=== PATIENT | male | born 1945 | race Caucasian/White ===

== ENCOUNTER 2018-03-11 17:12 | Inpatient (IN) | payer OTHER ==
[~2018-03-11] VITALS: Ht 195.6 cm; Wt 94.8 kg
--- NOTE | ~2018-03-11 | WRIGHTHP ---
[place], [place] PATIENT HISTORY AND PHYSICAL EXAM NAME: LG NAPIER UNIT #: [id number] ROOM: 310 DOCTOR: LANCE HEART MD BIRTHDATE: [birth year] DOS: 03/12/2018 INITIAL PSYCHIATRIC EVALUATION CHIEF COMPLAINT: "I have just been so depressed, I can't go on like this." HISTORY OF PRESENT ILLNESS: This is a 72-year-old white male who presents to [facility] with the chief complaint of increased depression with the plan to drink himself to . The patient reports that since he had open heart surgery in January 2017, he has felt increasingly depressed and despondent. He reports significant neurovegetative symptoms that include poor sleep with difficulty falling asleep, sleep continuity disturbance, cloud automation tester awakening, anergia, anhedonia, hopeless, helpless feelings, crying spells and inability to cope. He also reports significant suicidal thoughts with a plan. The patient reports his only previous medication trial was Prozac, but admits that he did not give it much of a chance. He is admitted now to rule out organic factors and attempt to stabilize on medication. PAST MEDICAL HISTORY: Remarkable for atrial fibrillation, coronary artery disease, colon cancer, hypertension, hyperlipidemia, peripheral artery disease, history of CABG x 2. The patient does not use illicit drugs. He is a former cigarette smoker and by his report drinks alcohol socially. STRENGTHS: He has good verbal skills and he is ambulatory. He has a supportive environment. MENTAL STATUS: The patient is alert and oriented. Mood is overwhelmingly depressed and he sobbed throughout the interview. He endorses multiple neurovegetative symptoms as well as positive suicidal thoughts. There is no bull, hypomania. There are no auditory or visual hallucinations. Short term, intermediate and long-term memories are intact. DIAGNOSIS: Major depression, recurrent, severe. PLAN: I have already started him on Remeron 15 mg at bedtime. I will increase the dose to 22.5 mg at bedtime. Screening examinations reveal a low vitamin D level of 26.9, so I will augment with vitamin D 50,000 International Units weekly. Vitamin B12 level is low normal at 264. I will go ahead and treat with vitamin B12 injection 1000 mcg IM monthly. We will engage in individual and lechuga milieu activity, returning home or to the least restrictive environment when psychiatrically stable. [place], [place] PATIENT HISTORY AND PHYSICAL EXAM NAME: SEE,LG Jeff UNIT #: [id number] ROOM: 310 DOCTOR: LANEC HEART MD BIRTHDATE: [birth year] LANCE HEART MD CM:HISPHYS:PATIENT HISTORY AND PHYSICAL EXAMINATION [phone] LANCE HEART MD 03/12/18 1033 interface
--- NOTE | ~2018-03-11 | DS ---
[place], [place] DISCHARGE SUMMARY NAME: LG NAPIER UNIT #: [id number] ROOM: 310 DOCTOR: LANCE HEART MD BIRTHDATE: [birth year] DOS: 03/17/2018 CHIEF COMPLAINT: "I have been so depressed, I cannot go on like this." HISTORY OF PRESENT ILLNESS: This is a 72-year-old white male who presents to [facility] emergency room with a chief complaint of increased depression with the plan to drink himself to . The patient reports that since he had open heart surgery in January 2017 he has felt increasingly depressed and despondent. He reports significant neurovegetative symptoms that include poor sleep with difficulty falling asleep, sleep continuity disturbance, speech and language clinician awakening, anergia, anhedonia, hopeless, helpless feelings, crying spells, and inability to cope. He also has significant suicide thoughts and was planning to overdose literally by drinking himself to . The patient states that his only previous medication trial was Prozac, but admittedly states he did not give it much of a chance. He is admitted now to rule out organic factors to attempt to stabilize on medication, returning to the least restrictive environment when psychiatrically stable. PAST MEDICAL HISTORY: Remarkable for atrial fibrillation, coronary artery disease, colon cancer, hypertension, hyperlipidemia, peripheral artery disease, history of CABG times 2. SOCIAL HISTORY: The patient does not use illicit drugs. He is a former cigarette smoker and by his report, he drinks socially. STRENGTHS: Include good verbal skills and he is ambulatory and he lives in a supportive environment. SUMMARY OF THE HOSPITAL COURSE: The patient was admitted to the unit where he was started on Remeron 15 mg at bedtime. Screening examination showed him to have a low vitamin D level of 26.9, which was augmented with vitamin D 50,000 international units weekly. His B12 level was low normal at 264, so he was given a vitamin B12 injection of 1000 mcg IM monthly. Gradually, the dose of the Remeron was increased from 15 mg at bedtime to 22.5 mg at bedtime, finally settling in at 30 mg at bedtime. This was augmented by Abilify 10 mg at bedtime. Abilify was utilized to be a fast acting augmenting agent to help lift him out of the depression. The patient reported a gradual trend toward improvement. Most notably his sleep normalized, so that he was sleeping soundly through the night and waking up more refreshed. Also, his appetite normalized. He began vocalizing positive plans for the future and was anxious to leave, so he can attend his grandson's graduation. He convincingly denied suicidal thoughts, homicidal thoughts or any self-injurious thoughts as well as denying any medication side effects. MENTAL STATUS AT DISCHARGE: The patient is alert and oriented. Mood does seem to be strongly trending towards euthymia. Affect is much more appropriate. There are no symptoms of bull or hypomania. There are no gross auditory or visual hallucinations. No delusions, no paranoia. Memory for the most part was fully intact. [place], [place] DISCHARGE SUMMARY NAME: LG NAPIER UNIT #: [id number] ROOM: 310 DOCTOR: LANCE HEART MD BIRTHDATE: [birth year] FINAL DIAGNOSIS ON DISCHARGE: Major depression, recurrent, severe. PLAN: His prescriptions have been e-scribed to the [facility]. He will have outpatient followup that will also include alcohol counseling. He is medically and psychiatrically stable. His biopsychosocial needs are adequately being met by the community at large and by his family. LANCE HEART MD CM:DISCHSUMMER [id number] LANCE HEART MD 03/17/18 1155 interface
--- NOTE | ~2018-03-11 | PR ---
[place], [place] PROGRESS NOTE NAME: LG NAPIER UNIT #: [id number] ROOM: 310 DOCTOR: RABIA CHING MD BIRTHDATE: [birth year] DOS: 03/13/2018 SUBJECTIVE: The patient seen and I spoke with the staff. Per staff, the patient is still depressed, anxious, continued to have passive wish, but no plan. He slept well and he is compliant with his medication. The patient was on his bed. He opened his eyes when I asked his name. He said that he still feels depressed and had suicidal ideation, but no intent or plan. He said that he wanted to get help. He took his medication and did not have any side effect. He acknowledges that he have to give some time for the medication to start working. MENTAL STATUS EXAMINATION: Pleasant, cooperative. He described his mood as "down." Affect was flat, constricted. Thought process goal directed. No flight of ideas, loosening of association. He denied auditory or visual hallucination. No delusion or paranoia noted. He still had fleeting suicidal ideation, but no intent or plan. Denied any homicidal ideation, intent or plan. Insight and judgment poor to fair. PLAN: 1. Continue current medication and care. 2. Encourage activity and groups. 3. Continue 1:1 therapy, psychoeducation, and coping skill. RABIA CHING MD CM:PNTRANS [phone] RABIA CHING MD 03/14/18 0003 interface
--- NOTE | ~2018-03-11 | PR ---
[place], [place] PROGRESS NOTE NAME: LG NAPIER UNIT #: [id number] ROOM: 310 DOCTOR: RABIA CHING MD BIRTHDATE: [birth year] DOS: 03/14/2018 PSYCHIATRIC PROGRESS NOTE SUBJECTIVE: The patient seen and spoke with the staff. Per staff, the patient slept 8 hours, but still says that he is not feeling better. He took his medication, did not have any side effect from the medication. The patient was pleasant and cooperative. He was in his bed. He said that he is feeling a little bit better, but still feels depressed and has fleeting suicidal ideation. He did not have any intent or plan. He said that he will tell the staff if he feels like to hurt himself. MENTAL STATUS EXAMINATION: Pleasant, cooperative, described his mood as "down." Affect was flat, constricted. Thought process goal directed. No flight of ideas or loosening of association. He denied auditory or visual hallucination. No delusion or paranoia noted. He still had fleeting suicidal ideation, but no intent or plan. Denied any homicidal ideation, intent or plan. PLAN: 1. Continue current medication and care. 2. Encourage activities in groups. 3. Final medication management and discharge plan by the regular team. RABIA CHING MD CM:PNTRANS [phone] RABIA CHING MD 03/14/182038 interface
--- NOTE | ~2018-03-11 | PR ---
[place], [place] PROGRESS NOTE NAME: SEELG UNIT #: [id number] ROOM: 310 DOCTOR: LANCE HEART MD BIRTHDATE: [birth year] DOS: 03/15/2018 CHIEF COMPLAINT: "I am just so depressed, I am not any better." SUMMARY OF THE VISIT: The patient was interviewed in the dining room. He first complained of not liking the denture product that the hospital is providing and states that it does not work as well as his Fixodent. He later softly told me that he was having issues with his bowels following surgery where small parts of his large and small intestine were removed. Because of that he has a lot of leakage, which causes him to have a lot of soreness. He did request that he get some type of balm. From a psychiatric standpoint, the patient continues to complain of horrible depression. He burst into tears as he talked to me stating that he is not sleeping any better. He is not feeling the least bit better. On a positive note, he is at least tolerating the medicine and is still hopeful that he will improve. MENTAL STATUS: He remains alert and oriented. He is grossly depressed, flat, blunted with crying spells. There is no hypomania, bull or psychotic symptoms. Memory is intact. PLAN: I will increase his Remeron to 30 mg at bedtime and augment with Abilify 10 mg at bedtime, continue to engage in individual and lechuga milieu activity, returning to the least restrictive environment when psychiatrically stable. LANCE HEART MD CM:PNTRANS [id number] LANCE HEART MD 03/15/18 0924 interface
--- NOTE | ~2018-03-11 | PR ---
[place], [place] PROGRESS NOTE NAME: LG NAPIER UNIT #: [id number] ROOM: 310 DOCTOR: NIRU BOO DO BIRTHDATE: [birth year] DOS: 03/16/2018 CHIEF COMPLAINT: "I am feeling better today." SUMMARY OF VISIT: The patient is a 72-year-old male who was interviewed today during group. At that point, the patient appeared to be readily engaging in therapy. He quickly engaged in conversation. He reported increase in appetite. He reports feeling better today; however, he did become tearful when he became anxious about missing a family member's graduation tomorrow. We reassured the patient that the plan for disposition would be for tomorrow. The patient voiced understanding. The patient had no other concerns at this time. He did say he was able to sleep well, but was interrupted this morning when his labs were drawn. We apologized that the labs were drawn early, but reassured him that it was necessary for his treatment. MENTAL STATUS EXAMINATION: The patient is alert and oriented x 3. His mood is more euthymic today. Affect is tearful with a sudden onset of tearfulness when discussing his family. No signs of hypomania, bull or psychotic symptoms. No signs of auditory or visual hallucinations. The patient did not voice any thoughts of self-harm or harm to others. Short term memory is intact. PLAN: 1. The patient likely to be discharged tomorrow, 03/17/2018. 2. No psychiatric medication changes at this time as the patient is currently tolerating psychotropic regimen well. 3. Morning labs included PT and INR. PT remains high at 21.1 and INR is trending towards a more therapeutic range at 1.9, Internal Medicine hospitalist team is managing the patient's medical conditions at this point. 4. We will continue to engage the patient in individual and lechuga milieu activity, returning to the least restrictive environment when psychiatrically stable. Niru Boo DO [place], [place] PROGRESS NOTE NAME: LG NAPIER UNIT #: [id number] ROOM: 310 DOCTOR: NIRU BOO DO BIRTHDATE: [birth year] LANCE HEART MD CM:MARTA [id number] NIRU BOO DO 03/16/18 1148 interface
[2018-03-11] MEDS ORDERED: ASPIRIN81 M1 PO (18:25)
[2018-03-11] MEDS ORDERED: LOPRESSOR25 MG PO (18:26)
[2018-03-11] MEDS ORDERED: LIPITOR20 MG PO (18:26)
[2018-03-11] MEDS ORDERED: COUMADIN4 M2 PO (18:27)
[2018-03-11] MEDS ORDERED: KLOR-CON M2020 ME1 PO (18:28)
[2018-03-11] MEDS ORDERED: ZESTRIL5 MG PO (18:29)
[2018-03-11] MEDS ORDERED: PERCOCET 7.5-31 EACH PO (18:32)
[2018-03-11 22:07] VITALS: BP 122/78; BP 128/78
[2018-03-12] MEDS ORDERED: Coumadin2 MG PO (00:13)
[2018-03-12] MEDS ORDERED: COUMADIN4 M2 PO (00:14)
[2018-03-12 06:56] LABS: BASO # 0.1 10*3/uL (0.0-0.1); BASO % 0.6 % (0.0-1.0); EOS # 0.3 10*3/uL (0.0-0.4); EOS % 3.9 % (1.0-4.0); HEMATOCRIT 45.2 % (42.0-52.0); HEMOGLOBIN 14.7 g/dl (14.0-18.0); LYMPH # 1.8 10*3/uL (1.3-4.4); LYMPH % 21.6 % (27.0-41.0); MEAN CELL VOLUME 92.2 fl (80.0-94.0); MEAN CORPUSCULAR HGB CONC 32.5 g/dl (33.0-37.0); MEAN PLATELET VOLUME 10.7 fl (9.6-12.3); MONO # 0.8 10*3/uL (0.1-1.0); MONO % 9.6 % (3.0-9.0); NEUT # 5.3 10*3/uL (2.3-7.9); NEUT % 63.9 % (47.0-73.0); PLATELET COUNT AUTOMATED 189 10*3/uL (130-400); RED CELL DISTRI WIDTH 13.8 % (0-14.5); WHITE BLOOD COUNT 8.3 10*3/uL (4.8-10.8)
[2018-03-12 07:22] LABS: INTERNATIONAL NORM RATIO 1.8 (2.0-3.5)
[2018-03-12 07:30] LABS: ALBUMIN 3.8 gm/dl (3.1-4.5); BUN 14 mg/dl (7-24); CHLORIDE 107 mmol/L (98-107); CHOLESTEROL 126 mg/dL (<200); CREATININE 1.03 mg/dL (0.70-1.30); POTASSIUM 5.2 mmol/L (3.5-5.1); SGOT/AST 23 IU/L (3-35); SODIUM 140 mmol/L (136-145); TRIGLYCERIDES 115 mg/dl (<150); VLDL CHOLESTEROL 23 mg/dL (6-40)
[2018-03-12 07:40] LABS: ALKALINE PHOSPHATASE 90 U/L (45-117); HDL CHOLESTEROL 41 mg/dl (40-60); LDL CHOLESTEROL 62 mg/dL (9-159); SGPT/ALT 27 U/L (12-78); TOTAL PROTEIN 7.3 gm/dL (6.4-8.2)
[2018-03-12 08:19] LABS: VITAMIN D, 25-HYDROXY 26.9 ng/mL (30-100)
[2018-03-12 08:20] VITALS: BP 114/58
[2018-03-12 17:35] LABS: BILIRUBIN NEGATIVE (NEGATIVE); BLOOD NEGATIVE (NEGATIVE); CLARITY CLEAR (CLEAR); COLOR YELLOW (YELLOW); GLUCOSE NEGATIVE (NEGATIVE); KETONE TRACE (NEGATIVE); LEUKO ESTERASE 1+ (NEGATIVE); NITRITE NEGATIVE (NEGATIVE); SPECIFIC GRAVITY 1.025 (1.005-1.030); UROBILINOGEN 0.2 E.U./dl (0.2-1.0)
[2018-03-12 17:47] LABS: BACTERIA TRACE; MUCOUS TRACE; WBC 31-40 wbc/hpf (0-5)
[2018-03-12 20:21] VITALS: BP 110/58
[2018-03-13 07:06] LABS: INTERNATIONAL NORM RATIO 1.5 (2.0-3.5)
[2018-03-13 07:57] VITALS: BP 115/65
[2018-03-13 20:00] VITALS: BP 122/62
[2018-03-14 08:42] VITALS: BP 119/63
[2018-03-14 09:34] LABS: INTERNATIONAL NORM RATIO 1.5 (2.0-3.5)
[2018-03-14 20:00] VITALS: BP 106/63
[2018-03-15 07:31] VITALS: BP 117/80
[2018-03-15 08:10] LABS: INTERNATIONAL NORM RATIO 1.7 (2.0-3.5)
[2018-03-15 20:00] VITALS: BP 127/54
[2018-03-16 07:06] LABS: INTERNATIONAL NORM RATIO 1.9 (2.0-3.5)
[2018-03-16 08:50] VITALS: BP 115/58
[2018-03-16 19:10] VITALS: BP 112/85
[2018-03-17 06:51] LABS: INTERNATIONAL NORM RATIO 2.1 (2.0-3.5)
[2018-03-17 07:45] VITALS: BP 128/80
[2018-03-17] MEDS ORDERED: COUMADIN4 M2 PO (08:46)
[2018-03-17] MEDS ORDERED: Vitamin D PO (08:46)
[2018-03-17] MEDS ORDERED: ARIPIPRAZOLE10 MG PO (10:54)
[2018-03-17] MEDS ORDERED: MIRTAZAPINE30 M2 PO (10:54)
[2018-03-18] MEDS ORDERED: ENSURE LIQUID237 ML PO (10:00)
== END 2018-03-17 13:10 | disposition home or self-care (01) | DRG 885 ==
LOC: 3N 17:12
PROVIDERS: Internal Medicine; Internal Medicine Hospice and Palliative Medicine; Psychiatry & Neurology Psychiatry
DX: F33.2 Major depressive disorder, recurrent severe without psychotic features (principal); D68.59 Other primary thrombophilia; I48.91 Unspecified atrial fibrillation; I25.810 Atherosclerosis of coronary artery bypass graft(s) without angina pectoris; I73.9 Peripheral vascular disease, unspecified; E78.00 Pure hypercholesterolemia, unspecified; R63.4 Abnormal weight loss; I10 Essential (primary) hypertension; E78.5 Hyperlipidemia, unspecified; Z85.038 Personal history of other malignant neoplasm of large intestine; Z95.1 Presence of aortocoronary bypass graft; Z87.891 Personal history of nicotine dependence; Z90.49 Acquired absence of other specified parts of digestive tract; Z82.49 Family history of ischemic heart disease and other diseases of the circulatory system; Z80.8 Family history of malignant neoplasm of other organs or systems; Z95.9 Presence of cardiac and vascular implant and graft, unspecified; Z81.8 Family history of other mental and behavioral disorders; Z79.82 Long term (current) use of aspirin; Z79.899 Other long term (current) drug therapy; Z88.8 Allergy status to other drugs, medicaments and biological substances